=== PATIENT | male | born 2000 | race Caucasian/White ===

== ENCOUNTER → 2025-01-31 | Outpatient (CLI) | payer OTHER ==
[~2025-01-31] MED LIST: ISOVUE-300 61% 100 ML VIAL As Ordered ONE; LIDOCAINE 1% MDV 20 ML VIAL As Ordered ONE; PROHANCE 279.3MG/ML 5ML VIAL As Ordered ONE
== END ==
LOC: M RAD 12:58
PROVIDERS: ATTEND Physician Assistant
DX: M25.512 Pain in left shoulder (principal)
CPT/HCPCS: 23350; 73223; 77002; A9576; Q9967